=== PATIENT | female | born 1960 | race Caucasian/White ===

== ENCOUNTER → 2016-12-03 | Outpatient (CLI) | payer OTHER ==
[~2016-12-03] MED LIST: ACET1CAP16 PO; ALPH50TA PO; AMPH10TA2 PO; ASTA1CAP PO; ATV5X PO; B-COTAB18 PO; CHOL20007 PO; CLX/20 PO; COEN1CAP17 PO; CYAN1SUB12 SL; CYTM25 PO; LEVO112T2 PO; LEVO125T4 PO; LOSA1TAB PO; MULTTAB58 PO; NRN100 PO; OMEG12006 PO; PYRI100T4 PO; VITAMIN C PO; [UNRECOGNIZED DRUG - OTHER] PO
[2016-12-03 15:28] LABS: THYROID STIMULATING HORMONE < 0.005 uIu/ml (0.300-4.500)
== END | disposition home or self-care (01) ==
LOC: C.LAB 13:57
PROVIDERS: ATTEND Nurse Practitioner Family
DX: E03.9 Hypothyroidism, unspecified (principal); Z11.59 Encounter for screening for other viral diseases

== ENCOUNTER → 2017-02-26 | Day surgery (SDC) | payer OTHER ==
[2017-02-20 10:17] VITALS: Ht 166.4 cm; Wt 63.6 kg
[~2017-02-26] VITALS: Ht 166.4 cm; Wt 63.6 kg
[~2017-02-26] MED LIST changes: -ACET1CAP16 PO; -ALPH50TA PO; -AMPH10TA2 PO; -ASTA1CAP PO; -ATV5X PO; -COEN1CAP17 PO; -CYAN1SUB12 SL; -LEVO125T4 PO; +LIDOCAINE HCL 2% 2 ML VIAL (20MG/ML) ONE; +MIDAZOLAM HCL 1 MG/ML 2ML VIAL ONE; -NRN100 PO; +ONDANSETRON INJ 2 MG/ML 2 ML VIAL ONE; +PROPOFOL IV EMULSION 10 MG/ML 20 ML VIAL IV ONE; +SODIUM CHLORIDE 0.9% 500ML 500 ML IV ONE
--- NOTE | 2017-02-26 11:33 | Endo History and Physical ---
History & Physical Date of Service: February 26, 2017. Chief Complaint: Hx polyps Referring Physician: Dr Black History of Present Illness 56 yo CF who presents for colonoscopy secondary to history of colon polyps. Past Surgical History Hx Cardiac Surgery: No Hx Internal Defibrillator: No Hx Pacemaker: No Hx Abdominal Surgery: Yes (HYSTERECTOMY, UTERINE ABLATION) Hx of Implantable Prosthesis: No Hx Post-Op Nausea and Vomiting: Yes (WITH GA) Hx Cancer Surgery: No Hx Thoracic Surgery: No Hx Orthopedic: No Hx Urinary Tract Surgery: No Family History Polyp Social History Smoking Status: Current Every Day Smoker Hx Substance Use: No Hx Alcohol Use: Yes (OCCASIONAL) Allergies Coded Allergies: Buspirone (Verified Allergy, Unknown, "MY URINE TURNED BROWN I THINK", 07/30) Levofloxacin (Verified Allergy, Unknown, PT DOESN'T REMEMBER, 02/20/17) Current Medications Reported Home Medications Medications Dose Route/Sig Max Daily Dose Days Date Category [Osteo Ease] 1 Tab PO QPM 02/20/17 Reported Vitamin D3 (Cholecalciferol) 2,000 Unit Tab 1 Tab PO QPM 02/20/17 Reported Vitamin B6 (Pyridoxine HCl) 100 Mg Tab 100 Mg PO QPM 02/20/17 Reported Multivitamin (Multiple Vitamin) 1 Tab Tab 1 Tab PO QPM 02/20/17 Reported [Vitamin C] 1,000 Mg PO QPM 02/20/17 Reported Cozaar (Losartan Potassium) 25 Mg Tab 25 Mg PO QAM 02/20/17 Reported Synthroid (Levothyroxine Sodium) 112 Mcg Tab 112 Mcg PO QAM 02/20/17 Reported [place] 3 ([place]-3 Fatty Acids) 1 Cap Cap 1 Cap PO QPM 11/05/14 Reported Vitamin B Complex (B-Complex Vitamins) 1 Tab Tab 1 Tab PO QPM 11/05/14 Reported Citalopram Hydrobromide (Citalopram) 20 Mg Tab 20 Mg PO HS 11/05/14 Reported Liothyronine Sodium 25 Mcg Tab 0.5 Tab PO QAM 11/05/14 Reported Vital Signs Weight (Kilograms): 63.64 Height (Feet): 5 Height (Inches): 5.5 Date Time Temp Pulse Resp B/P Pulse Ox O2 Delivery O2 Flow Rate FiO2 02/26/17 11:22 36.8 54 18 152/79 95 Room Air Physical Exam General Appearance: WD/WN, no apparent distress Respiratory/Chest: Auscultation: breath sounds normal Cardiovascular: Heart Auscultation: RRR Abdomen: Bowel Sounds: normal Inspection & Palpation: soft, non-distended, no tenderness, guarding & rebound Assessment and Plan Assessment: 56 yo CF who presents for colonoscopy secondary to history of colon polyps. Plan: Proceed with colonoscopy.
--- NOTE | 2017-02-26 12:42 | GI REPORT ---
Procedure Date: 02/26/2017 11:49 AM Procedure: Colonoscopy Indications: High risk colon cancer surveillance: Personal history of colonic polyps Medicines: Monitored Anesthesia Care Complications: No immediate complications. Estimated Blood Loss: Estimated blood loss: none. Procedure: Pre-Anesthesia Assessment: - Prior to the procedure, a History and Physical was performed, and patient medications and allergies were reviewed. The patient's tolerance of previous anesthesia was also reviewed. The risks and benefits of the procedure and the sedation options and risks were discussed with the patient. All questions were answered, and informed consent was obtained. Prior Anticoagulants: The patient has taken no previous anticoagulant or antiplatelet agents. ASA Grade Assessment: II - A patient with mild systemic disease. After reviewing the risks and benefits, the patient was deemed in satisfactory condition to undergo the procedure. After I obtained informed consent, the scope was passed under direct vision. Throughout the procedure, the patient's blood pressure, pulse, and oxygen saturations were monitored continuously. The Scope was introduced through the anus and advanced to the terminal ileum. The colonoscopy was performed without difficulty. The patient tolerated the procedure well. The quality of the bowel preparation was good. The terminal ileum, ileocecal valve, appendiceal orifice, and rectum were photographed. Findings: Non-bleeding internal hemorrhoids were found during retroflexion. The hemorrhoids were small. Impression: - Non-bleeding internal hemorrhoids. - No specimens collected. Recommendation: - Resume previous diet. - Continue present medications. - Repeat colonoscopy in 5 years for surveillance. - Return to primary care physician as previously scheduled. Eitan Sylvester DO 02/26/2017 12:42:21 PM This report has been signed electronically. Note Initiated On: 02/26/2017 11:49 AM I attest to the content of the Intraoperative Record and orders documented therein, exceptions below
--- NOTE | 2017-02-26 12:46 | Discharge Instructions ---
Endoscopy Patient Instructions Date / Procedure(s) Performed February 26, 2017. Colonoscopy Allergy Information Coded Allergies: Buspirone (Verified Allergy, Unknown, "MY URINE TURNED BROWN I THINK", 07/30) Levofloxacin (Verified Allergy, Unknown, PT DOESN'T REMEMBER, 02/20/17) Discharge Date / Findings February 26, 2017. Internal hemorrhoids Medication Instructions Stopped Medication(s): stopped vitamins 3 days ago OK to resume all medications today as prescribed Reported Home Medications Medications Dose Route/Sig Max Daily Dose Days Date Category [Osteo Ease] 1 Tab PO QPM 02/20/17 Reported Vitamin D3 (Cholecalciferol) 2,000 Unit Tab 1 Tab PO QPM 02/20/17 Reported Vitamin B6 (Pyridoxine HCl) 100 Mg Tab 100 Mg PO QPM 02/20/17 Reported Multivitamin (Multiple Vitamin) 1 Tab Tab 1 Tab PO QPM 02/20/17 Reported [Vitamin C] 1,000 Mg PO QPM 02/20/17 Reported Cozaar (Losartan Potassium) 25 Mg Tab 25 Mg PO QAM 02/20/17 Reported Synthroid (Levothyroxine Sodium) 112 Mcg Tab 112 Mcg PO QAM 02/20/17 Reported [place] 3 ([place]-3 Fatty Acids) 1 Cap Cap 1 Cap PO QPM 11/05/14 Reported Vitamin B Complex (B-Complex Vitamins) 1 Tab Tab 1 Tab PO QPM 11/05/14 Reported Citalopram Hydrobromide (Citalopram) 20 Mg Tab 20 Mg PO HS 11/05/14 Reported Liothyronine Sodium 25 Mcg Tab 0.5 Tab PO QAM 11/05/14 Reported Provider Instructions Activity Restrictions - No exercising or heavy lifting for 24 hours. - Do not drink alcohol the day of the procedure. - Do not drive a car or operate machinery until the day after the procedure. - Do not make any important decisions or sign important papers in 24 hours after the procedure. Following Day: - Return to full activity which may include returning to work/school. Diet Start your diet with liquids and light foods (jello, soup, juice, toast). Then eat your usual diet if not nauseated. Treatment For Common After Affects For mild abdominal pain, bloating, or excessive gas: - Rest - Eat lightly - Lie on right side Follow-Up Information Follow-up with Dr Black as scheduled Anesthesia Information What You Should Know You have had a procedure that required some medicine to reduce anxiety and discomfort. This treatment is called moderate sedation. After receiving the treatment, you may be sleepy, but you will be able to breathe on your own. The effects of the treatment may last for several hours. Follow these instructions along with Activity/Diet recommendations noted above: * Do NOT do anything where dizziness or clumsiness would be dangerous. * Rest quietly at home today, then you can be up and about tomorrow. * Have a responsible person stay with you the rest of today. * You may have had an I.V. today. If so, you may take the dressing off later today. Recommendations Call your doctor if: * Trouble breathing * Continuous vomiting for more than 24 hours * Temperature above 101 degrees * Severe abdominal pain or bloating * Pain not relieved by pain medicine ordered * There is increased drainage or redness from any incision * A large amount of rectal bleeding greater than 2-3 tablespoons. (If you had a polyp/s removed or have hemorrhoids, a small amount of blood - from the rectum is to be expected.) * You have any unanswered questions or concerns. IN THE EVENT OF A SERIOUS EMERGENCY, GO TO THE NEAREST EMERGENCY ROOM Your discharge instructions were prepared by provider Eitan Sylvester. Patient Instructions Signature Page Cami Man Patient (or Guardian) Signature/Date: I have read and understand the instructions given to me by my caregivers. Caregiver/RN/Doctor Signature/Date: The above-named patient and/or guardian has received patient instructions on this date. + Original Patient Signature Page (only) stays with chart. Please make copy for patient.
--- NOTE | 2017-02-26 13:06 | Anesthesiology Progress Note ---
Anesthesia Post Op Note Date & Time February 26, 2017 at 13:06 Vital Signs Pain Intensity: 0 Vital Signs Past 12 Hours Date Time Temp Pulse Resp B/P Pulse Ox O2 Delivery O2 Flow Rate FiO2 02/26/17 12:55 55 18 130/89 97 Room Air 02/26/17 12:40 58 18 131/99 97 Room Air 02/26/17 11:22 36.8 54 18 152/79 95 Room Air Notes Mental Status: alert / awake / arousable, participated in evaluation Pt Amnestic to Procedure: Yes Nausea / Vomiting: adequately controlled Pain: adequately controlled Airway Patency, RR, SpO2: stable & adequate BP & HR: stable & adequate Hydration State: stable & adequate Anesthetic Complications: no major complications apparent
[2017-02-26 13:10] VITALS: BP 149/83; PULSE 66; O2SAT 97
== END | disposition home or self-care (01) ==
LOC: C.GI 10:53
PROVIDERS: ATTEND Internal Medicine
DX: Z12.11 Encounter for screening for malignant neoplasm of colon (principal); Z86.010 Personal history of colon polyps; K64.8 Other hemorrhoids; I10 Essential (primary) hypertension; F32.9 Major depressive disorder, single episode, unspecified; F17.200 Nicotine dependence, unspecified, uncomplicated; Z90.710 Acquired absence of both cervix and uterus; Z68.23 Body mass index [BMI] 23.0-23.9, adult; Z83.71 Family history of colonic polyps